=== PATIENT | female | born 1990 | race Hispanic/Latino ===

== ENCOUNTER 2021-07-09 19:30 | Emergency (ER) | payer SELFPAY ==
[2021-07-09] MEDS ORDERED: Acetaminophen 500 MG TAB ONE (21:21)
== END 2021-07-09 21:28 | disposition home or self-care (01) ==
LOC: CSHERS 19:30
DX: O99.891 Other specified diseases and conditions complicating pregnancy (principal); R10.30 Lower abdominal pain, unspecified; Z3A.18 18 weeks gestation of pregnancy
CPT/HCPCS: 76815